=== PATIENT | female | born 1965 | race Caucasian/White ===

== ENCOUNTER 2017-10-29 11:23 | Emergency (ER) | payer OTHER ==
[~2017-10-29] VITALS: Ht 157.5 cm; Wt 69.4 kg
[2017-10-29 13:28] LABS: APPEARANCE CLEAR ((CLEAR)); BILIRUBIN NEGATIVE; BLOOD SMALL; COLOR STRAW ((YELLOW)); GLUCOSE (STRIP) NEGATIVE; KETONES NEGATIVE; LEUKOCYTES TRACE; NITRITE NEGATIVE; PROTEIN (STRIP) NEGATIVE; SPECIFIC GRAVITY 1.006 (1.000-1.030); UROBILINOGEN 0.2 MG/DL (0.2-1.0)
[2017-10-29 13:31] LABS: BACTERIA RARE /HPF; EPITHELIAL CELLS RARE /HPF; HYALINE CASTS 0-5 /LPF; MUCUS TRACE /LPF; RED BLOOD CELLS 0-5 /HPF (0-5); UCUL ADDED? NO; WHITE BLOOD CELLS 0-5 /HPF (0-5)
[2017-10-29] MEDS ORDERED: MOTRIN600 MG PO (14:30)
[2017-10-29] MEDS ORDERED: PREDNISONE20 MG PO (14:30)
[2017-10-29] MEDS ORDERED: FLEXERIL10 MG PO (14:30)
[2017-10-29 14:49] VITALS: BP 136/76
== END 2017-10-29 14:50 | disposition home or self-care (01) ==
LOC: EME 11:23
PROVIDERS: Nurse Practitioner Family
DX: M54.42 Lumbago with sciatica, left side (principal); M54.41 Lumbago with sciatica, right side; Z88.5 Allergy status to narcotic agent
CPT/HCPCS: 81003; 99281; 99285; J1885; J7512